=== PATIENT | female | born 1940 | race Caucasian/White ===

== ENCOUNTER → 2021-01-02 15:24 | Outpatient (CLI) | payer MEDICARE, SELFPAY ==
--- NOTE | 2021-01-02 | DI.MRI.S_ITS ---
PROCEDURE: MR HAND LT WO/W CON INDICATIONS: LEFT HAND PAIN TECHNIQUE: Noncontrast coronal T1 spin echo and STIR, sagittal T1 spin echo with fat saturation and STIR, axial T1 spin echo and T2 fast spin echo with fat saturation. After the administration of contrast, axial/sagittal/coronal T1 spin echo with fat saturation through the left hand . COMPARISON: None. FINDINGS: Image quality: Excellent. Bones: The visualized bone marrow demonstrates normal signal on all sequences. The overlying cortex appears intact. No abnormal intraosseous enhancement. Soft tissues: At the level of the distal phalanx of the little finger (volar aspect), there is a homogeneous T2 hyperintense lesion with no internal enhancement measuring approximately 1.1 x 0.9 cm on axial images. This closely abuts the cortex of the distal phalanx, and distal flexor tendon slips. There is bilobed appearance to this lesion on sagittal image 8/7. IMPRESSION: Nonspecific lobulated appearing T2 hyperintense lesion, with no definite enhancement, at the distal phalanx of the little finger, which could reflect ganglion cyst. 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 Recommend clinical management. Dictated by: Jigar Rhodes M.D. on 01/02/2021 at 16:52 Approved by: Jigar Rhodes M.D. on 01/02/2021 at 17:13
== END ==
PROVIDERS: PCP Internal Medicine; Referring Provider Orthopaedic Surgery; Visit Provider Orthopaedic Surgery
DX: M79.642 Pain in left hand (principal); R22.32 Localized swelling, mass and lump, left upper limb
CPT/HCPCS: 73220